=== PATIENT | male | born 1945 | race Caucasian/White ===

== ENCOUNTER 2018-01-24 07:30 | Day surgery (SDC) | payer MEDICARE ==
[2018-01-11 09:12] VITALS: BMI 27.4
[2018-01-24] MEDS ORDERED: Gentamicin 160 MG in Sodium Chloride 0.9% 100 ML IVPB SCH (09:00)
[2018-01-24] MEDS ORDERED: cefTRIAXone 1 gm 1 GM/100 ML BAG IVPB ONE (09:44)
[2018-01-24] MEDS ORDERED: Lidocaine 2% Jelly (Uro-Jet) ONE (09:45)
[2018-01-24] MEDS ORDERED: Propofol 10 mg/ml Inj (20 ML) ONE ×2 (09:57→09:58)
[2018-01-24] MEDS ORDERED: Lidocaine Hydrochloride 5 ML INJ ONE (09:59)
[2018-01-24 11:53] VITALS: PULSE 59; RESP 16; O2SAT 100
[2018-01-24 12:42] VITALS: BP 137/63; TEMP 97.9
--- NOTE | 2018-01-24 20:53 | OP ---
PROCEDURE DATE: 01/24/2018 PREOPERATIVE DIAGNOSIS: Elevated PSA; 12.3. POSTOPERATIVE DIAGNOSIS: Elevated PSA; 12.3. PROCEDURE: Transrectal ultrasound diagnostic, transrectal ultrasound guidance, and prostatic biopsy. SURGEON: Nato Andersen MD DESCRIPTION OF PROCEDURE: The patient was interviewed in the holding area and confirmed he has stopped his baby aspirin and has not taken any NSAIDs for over a week prior to the procedure. He is n.p.o. after midnight. I told the patient that in the unlikely event that postoperatively he gets high fevers or chills, he is to call me immediately and/or go to the emergency room if there is no immediate response. The patient was brought to the operating room, placed in lithotomy position, prepped and draped in usual fashion. He was given gentamicin 160 mg and Rocephin 1 g IV piggyback. The rectum was cleansed with Betadine. Digital rectal exam revealed a smooth and symmetrical prostate that was moderately enlarged without any nodules. The B and K transducer was introduced into the rectum. The prostatic volume was determined to be 95 cm. No localizing lesions were noted. We now used the transducer to guide the biopsy instrument and we divided the prostate into sextants and sent two specimens per sextant. We then maintained pressure for five minutes to induce hemostasis and upon removal of the transducer, there was no significant bleeding noted. The patient tolerated the procedure well. Nato Andersen MD
== END 2018-01-24 12:28 | disposition home or self-care (01) ==
LOC: C.SDS 07:30
PROVIDERS: ATTEND Urology
DX: R97.20 Elevated prostate specific antigen [PSA] (principal)
CPT/HCPCS: 55700; 88305; 88342; J0696; J1580; J2270

== ENCOUNTER 2018-05-15 12:01 | Outpatient (CLI) | payer MEDICARE | END 2018-05-15 12:02 | disposition home or self-care (01) | LOC: C.PAT 12:01 | DX: R97.20 Elevated prostate specific antigen [PSA] (principal) ==

== ENCOUNTER 2018-05-16 07:43 | Day surgery (SDC) | payer MEDICARE ==
[2018-05-15 12:24] VITALS: BMI 28.3
[2018-05-16] MEDS ORDERED: Gentamicin 80 mg in 0.9% NS 160 MG/200 ML BAG IVPB ONE (09:22)
[2018-05-16] MEDS ORDERED: cefTRIAXone 1 gm 1 GM/100 ML BAG IVPB ONE (09:22)
[2018-05-16] MEDS ORDERED: Lidocaine 2% Jelly (Uro-Jet) ONE (09:22)
[2018-05-16] MEDS ORDERED: Propofol 10 mg/ml Inj (20 ML) ONE ×2 (09:53→10:13)
[2018-05-16] MEDS ORDERED: ePHEDrine 50 mg/ml Inj ONE (10:06)
[2018-05-16] MEDS ORDERED: HYDROmorphone 0.5 mg/0.5 ml ISec IVP PRN (10:32)
[2018-05-16 11:40] VITALS: BP 132/72; PULSE 78; RESP 18; TEMP 98; O2SAT 100
--- NOTE | 2018-05-16 22:15 | OP ---
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 PROCEDURE: Transrectal ultrasound diagnostic, transrectal ultrasound guidance, and prostatic biopsies. DESCRIPTION OF PROCEDURE: The patient was met in the holding area. He confirmed he has not taken any aspirin or NSAIDs for over 10 days. He was given routine instructions about postop care and told that in the unlikely event of high fever or chills, he is to call me immediately and/or go to the emergency room. He was brought to the operating room, placed under sedation in lithotomy position and medicated with 160 mg of gentamicin and 1 g of Rocephin IV piggyback. The rectum was cleansed with Betadine. The B and K transducer was introduced and the prostate was scanned and found to have a total volume of 70.2 mL. No localizing lesions were noted. We now performed transrectal ultrasound for guidance and prostate biopsies. We divided the prostate into six sections and took two specimens each; however, at the left base, the area of the previous RAJINDER finding, additional biopsies were taken as was an additional biopsy of the left mid and of the right base as well. We now maintained pressure in the rectum for five minutes with a transducer to promote hemostasis and upon withdrawal, there was virtually no blood noted. The patient tolerated the procedure well. Nato Andersen MD
== END 2018-05-16 13:50 | disposition home or self-care (01) ==
LOC: C.SDS 07:43
PROVIDERS: ATTEND Urology
DX: N40.0 Benign prostatic hyperplasia without lower urinary tract symptoms (principal); R97.20 Elevated prostate specific antigen [PSA]
CPT/HCPCS: 55700; 76872; 88305; 88342; J0696; J1170; J1580; J2001; J2704

== ENCOUNTER 2018-05-16 16:32 | Emergency (ER) | payer MEDICARE ==
[2018-05-16 16:32] VITALS: BMI 28.3
[2018-05-16 16:43] VITALS: O2SAT 98
--- NOTE | 2018-05-16 16:57 | C.PDOC ---
History Of Present Illness Patient is a 72 y/o male with a PMHx of prostate disease, who is s/p biopsy today with Dr. Pedro. He states after the biopsy, he was able to urinate, though noted urine to be blood tinged. Patient went home and has since been unable to pass urine, prompting this ED visit. He also complains of discomfort and abdominal pain. On arrival blood pressure is elevated (215/90) and patient is tachycardic. Time Seen by Provider: 05/16/18 16:48 Chief Complaint (Nursing): Male Genitourinary History Per: Patient History/Exam Limitations: no limitations Onset/Duration Of Symptoms: Hrs Current Symptoms Are (Timing): Still Present Severity: Severe Quality Of Discomfort: "Pain" Associated Symptoms: Urinary Symptoms Past Medical History Reviewed: Historical Data, Nursing Documentation, Vital Signs Vital Signs: Last Vital Signs Temp 95.4 F L 05/16/18 16:39 Pulse 103 H 05/16/18 16:39 Resp 24 05/16/18 16:39 BP 215/90 H 05/16/18 16:39 Pulse Ox 98 05/16/18 16:39 - Medical History PMH: HTN, Hypercholesterolemia Denies: Chronic Kidney Disease Other PMH: "prostate disease" Other Surgeries: prostate biopsy Family History: States: Unknown Family Hx - Social History Hx Alcohol Use: No Hx Substance Use: No - Immunization History Hx Tetanus Toxoid Vaccination: No Hx Influenza Vaccination: No Hx Pneumococcal Vaccination: No Review Of Systems Constitutional: Negative for: Fever, Chills Cardiovascular: Negative for: Chest Pain Respiratory: Negative for: Cough, Shortness of Breath Gastrointestinal: Positive for: Abdominal Pain. Negative for: Vomiting, Diarrhea Genitourinary: Positive for: Other (Urinary retention). Negative for: Incontinence Musculoskeletal: Negative for: Back Pain Skin: Negative for: Rash Neurological: Negative for: Weakness, Numbness Physical Exam - Physical Exam Appears: Non-toxic, No Acute Distress Skin: Warm, Dry, No Rash Head: Atraumatic, Normacephalic Eye(s): bilateral: Normal Inspection, PERRL, EOMI Oral Mucosa: Moist Neck: Normal ROM Chest: Symmetrical Cardiovascular: Rhythm Regular, No Murmur Respiratory: Normal Breath Sounds, No Accessory Muscle Use Gastrointestinal/Abdominal: Bowel Sounds (normal), Tenderness (+diffusely tender), Distention (abdomen appears distended), No Guarding Back: No CVA Tenderness Extremity: Bilateral: Atraumatic, Normal Color And Temperature Pulses: Left Dorsalis Pedis: Normal, Right Dorsalis Pedis: Normal Neurological/Psych: Oriented x3 ED Course And Treatment - Laboratory Results Result Diagrams: 05/16/18 17:37 05/16/18 17:37 Lab Interpretation: Abnormal (Na 130, K+ 3.4, UA + RBC 124) O2 Sat by Pulse Oximetry: 98 (RA) Pulse Ox Interpretation: Normal Progress Note: Bladder scan performed, showing 600cc of urine. Labs ordered and reviewed. Miles inserted and drained greater than 1000ml clear urine. Patient fitted with a leg bag for discharge. Reevaluation Time: 18:34 Reassessment Condition: Improved - Physician Consult Information Time Consulting Physician Contacted: 18:42 Physician Contacted: Nato Andersen Outcome Of Conversation: He will see patient in the office tomorrow. Disposition Counseled Patient/Family Regarding: Studies Performed, Diagnosis, Need For Followup, Rx Given - Disposition Referrals: Nato Andersen MD [Staff Provider] - Disposition: HOME/ ROUTINE Disposition Time: 18:35 Condition: IMPROVED Prescriptions: Tamsulosin [Flomax] 0.4 mg PO DAILY #30 cap Instructions: Miles Catheter, Male, Urinary Retention Forms: [facility] (Bulgarian) - Clinical Impression Clinical Impression: Urinary retention - Scribe Statement The provider has reviewed the documentation as recorded by the Jeyibe Yomaira Buchanan Provider Attestation: All medical record entries made by the Jeyibe were at my direction and personally dictated by me. I have reviewed the chart and agree that the record accurately reflects my personal performance of the history, physical exam, medical decision making, and the department course for this patient. I have also personally directed, reviewed, and agree with the discharge instructions and disposition.
[2018-05-16 17:45] LABS: BASO % 0.3 % (0.0-2.0); MONO # 0.7 K/uL (0.0-0.8)
[2018-05-16 17:54] LABS: EOS % 0.1 % (0.0-4.0); HEMOGLOBIN 13.5 g/dL (12.0-18.0); LYMPH # 0.9 K/uL (1.0-4.3); LYMPH % 9.5 % (20.0-40.0); MEAN CELL VOLUME 88.5 fL (80.0-94.0); MEAN CORPUSCULAR HEMOGLOBIN 29.3 pg (27.0-31.0); MEAN CORPUSCULAR HGB CONC 33.1 g/dL (33.0-37.0); MEAN PLATELET VOLUME 11.2 fL (7.2-11.7); MONO % 6.6 % (0.0-10.0); NEUT # 8.3 K/uL (1.8-7.0); NEUT % 83.5 % (50.0-75.0); RED CELL DISTRIBUTION WIDTH 14.4 % (11.5-14.5)
[2018-05-16 17:55] LABS: PLATELET COUNT 102 K/uL (130-400); WHITE BLOOD COUNT 9.9 K/uL (4.8-10.8)
[2018-05-16 17:59] LABS: URINE BILIRUBIN NEGATIVE (NEGATIVE); URINE BLOOD 3+ (NEGATIVE); URINE CLARITY Clear (Clear); URINE COLOR Yellow (YELLOW); URINE GLUCOSE (UA) NORMAL (Normal); URINE HYALINE CAST 0-2 /lpf (0-2); URINE LEUKOCYTE ESTERASE NEG Leu/uL (Negative); URINE PROTEIN NEGATIVE (NEGATIVE); URINE UROBILINOGEN NORMAL mg/dL (0.2-1.0)
[2018-05-16 18:03] LABS: ALB/GLOB RATIO 1.5 (1.0-2.1); ALBUMIN 4.1 g/dL (3.5-5.0); ALT/SGPT 15 U/L (21-72); AST/SGOT 26 U/L (17-59); BLOOD UREA NITROGEN 14 mg/dL (9-20); CALCIUM 8.6 mg/dl (8.6-10.4); GFR NON-AFRICAN AMERICAN > 60
[2018-05-16 18:06] LABS: LYMPHOCYTE 8 % (20-40); MONOCYTE 5 % (0-10); NEUTROPHIL 87 % (50-75); TOTAL CELLS COUNTED 100
[2018-05-16 18:09] LABS: PLATELET ESTIMATE SLIGHTLY DECREASED (NORMAL)
[2018-05-16 18:56] VITALS: BP 143/70; PULSE 75; RESP 13; TEMP 97.7
== END 2018-05-16 19:10 | disposition home or self-care (01) ==
LOC: C.ER 16:32
DX: R33.9 Retention of urine, unspecified (principal); E78.00 Pure hypercholesterolemia, unspecified; I10 Essential (primary) hypertension